=== PATIENT | male | born 1930 | race Caucasian/White ===

== ENCOUNTER 2017-06-19 05:02 | Day surgery (SDC) | payer OTHER, MEDICAID ==
[~2017-06-19] VITALS: Ht 175.3 cm; Wt 86.2 kg
[2017-06-19] MEDS ORDERED: CEFAZOLIN 1 GM IVPB PREMIX 50 ML IV ONE (07:00)
[2017-06-19] MEDS ORDERED: NEOSTIGMINE METHYLSULFATE 1 MG/ML, 10 ML VIAL IVP ONE (07:06)
[2017-06-19] MEDS ORDERED: KETOROLAC TROMETHAMINE 30 MG VIAL IVP ONE (07:06)
[2017-06-19] MEDS ORDERED: MIDAZOLAM HCL 5 MG/5 ML VIAL IVP ONE (07:06)
[2017-06-19] MEDS ORDERED: PROPOFOL 200MG/ 20ML VIAL (DIPRIVAN) IV ONE (07:06)
[2017-06-19] MEDS ORDERED: BUPIVACAINE /EPINEPHRINE/PF 0.25% 30 ML VIAL INJ ONE (07:06)
[2017-06-19] MEDS ORDERED: ONDANSETRON HCL 4 MG/2 ML VIAL IVP ONE (07:06)
[2017-06-19] MEDS ORDERED: SEVOFLURANE 15 MIN GAS INH ONE (07:06)
[2017-06-19] MEDS ORDERED: LR 1,000 ML IV.SOLN IV ONE (07:06)
[2017-06-19] MEDS ORDERED: fentaNYL CITRATE/PF 100 MCG/2 ML AMP IVP ONE (07:06)
[2017-06-19] MEDS ORDERED: NS IRRIG SOLN 1000 ML IR ONE (07:06)
[2017-06-19] MEDS ORDERED: GLYCOPYRROLATE 0.2 MG/ML VIAL IJ ONE (07:06)
[2017-06-19] MEDS ORDERED: ROCURONIUM BROMIDE 10 MG/ML (ZEMURON) IV ONE (07:06)
[2017-06-19] MEDS ORDERED: NS 1000 ML BAG IV ONE (07:06)
[2017-06-19] MEDS ORDERED: CEFAZOLIN SOD 1 GM/ ISO 50 ML PREMIX IV ONE (07:15)
[2017-06-19] MEDS ORDERED: IOHEXOL 50 ML IV ONE (07:29)
[2017-06-19] MEDS ORDERED: LR 1,000 ML IV SCH (07:51)
[2017-06-19] MEDS ORDERED: MEPERIDINE HCL/PF 25 MG/ML DISP.SYRIN IVP PRN ×2 (08:00)
[2017-06-19] MEDS ORDERED: ONDANSETRON HCL 4 MG/2 ML VIAL IVP PRN (08:00)
[2017-06-19] MEDS ORDERED: HYDROmorphone 1 MG INJ. 1 MG/ML AMPUL IVP PRN ×2 (08:00→09:00)
[2017-06-19] MEDS ORDERED: HYDROmorphone 2 MG/ML VIAL IVP PRN ×2 (08:00)
[2017-06-19] MEDS ORDERED: D5/0.45 NS 1,000 ML IV SCH (08:51)
[2017-06-19] MEDS ORDERED: HYDROcodone/ACETAMIN 5-325 MG TAB (NORCO/ VICODIN) PO PRN ×2 (09:00)
[2017-06-19 10:18] VITALS: BP_SYST 136
[2017-06-20] MEDS ORDERED: METF-509 PO (18:42)
[2017-06-20] MEDS ORDERED: ISOS30TA6 PO (18:42)
[2017-06-20] MEDS ORDERED: MELO15TA13 PO (18:42)
[2017-06-20] MEDS ORDERED: PANT20TA2 PO (18:44)
[2017-06-20] MEDS ORDERED: DONE5TAB3 PO (18:44)
[2017-06-20] MEDS ORDERED: TAMS-11 PO (18:44)
[2017-06-20] MEDS ORDERED: GLIP2.5T3 PO (18:44)
[2017-06-20] MEDS ORDERED: LOSA25TA3 PO (18:44)
== END 2017-06-19 12:30 | disposition home or self-care (01) ==
LOC: SMU 05:02 → SDS 05:02
PROVIDERS: ATTEND Colon & Rectal Surgery
DX: K80.10 Calculus of gallbladder with chronic cholecystitis without obstruction (principal); I25.10 Atherosclerotic heart disease of native coronary artery without angina pectoris; E11.9 Type 2 diabetes mellitus without complications; E78.00 Pure hypercholesterolemia, unspecified; I10 Essential (primary) hypertension; E03.9 Hypothyroidism, unspecified; C43.9 Malignant melanoma of skin, unspecified; K21.9 Gastro-esophageal reflux disease without esophagitis; Z87.891 Personal history of nicotine dependence; Z95.1 Presence of aortocoronary bypass graft; Z79.899 Other long term (current) drug therapy
CPT/HCPCS: 47563; 76000; 88304; C1727; C1758; J0690; J1885; J2250; J2405; J2704; J2710; J3010; J3490 ×2; J7030; J7120; Q9967

== ENCOUNTER 2017-06-19 18:08 | Emergency (ER) | payer OTHER, MEDICAID ==
[~2017-06-19] VITALS: Ht 175.3 cm; Wt 83.9 kg
[2017-06-19 18:11] VITALS: BP_SYST 132
[2017-06-19 18:45] VITALS: BP_SYST 132
[2017-06-20] MEDS ORDERED: MELO15TA13 PO (18:42)
[2017-06-20] MEDS ORDERED: ISOS30TA6 PO (18:42)
[2017-06-20] MEDS ORDERED: METF-509 PO (18:42)
[2017-06-20] MEDS ORDERED: PANT20TA2 PO (18:44)
[2017-06-20] MEDS ORDERED: TAMS-11 PO (18:44)
[2017-06-20] MEDS ORDERED: GLIP2.5T3 PO (18:44)
[2017-06-20] MEDS ORDERED: LOSA25TA3 PO (18:44)
[2017-06-20] MEDS ORDERED: DONE5TAB3 PO (18:44)
== END 2017-06-19 18:45 | disposition home or self-care (01) ==
LOC: SED 18:08
DX: K91.841 Postprocedural hemorrhage of a digestive system organ or structure following other procedure (principal); E11.9 Type 2 diabetes mellitus without complications; I10 Essential (primary) hypertension; Z90.49 Acquired absence of other specified parts of digestive tract
CPT/HCPCS: 99283

== ENCOUNTER 2017-06-20 14:53 | Inpatient (IN) | payer OTHER, MEDICAID ==
[~2017-06-20] VITALS: Ht 170.2 cm; Wt 85.7 kg
[2017-06-20 15:00] VITALS: BP_SYST 113
[2017-06-20] MEDS ORDERED: NACL 0.9% 1,000 ML IV ONE (15:18)
[2017-06-20 15:54] LABS: BASOPHILS # (AUTO) 0.1 K/uL (0.0-0.2); BASOPHILS % (AUTO) 0.9 % (0.0-2.0); EOSINOPHILS % (AUTO) 0.1 % (0.0-4.0); HEMATOCRIT 32.1 % (36-54); HEMOGLOBIN 10.7 g/dL (14.0-18.0); LYMPHOCYTES # (AUTO) 2.3 K/uL (1.0-5.5); LYMPHOCYTES % (AUTO) 17.6 % (20.5-51.5); MEAN CORPUSCULAR HEMOGLOBIN 31 pg (27-31); MEAN CORPUSCULAR HGB CONC 33 % (32-36); MEAN CORPUSCULAR VOLUME 93 fL (79.0-98.0); MONOCYTES # (AUTO) 1.2 K/uL (0.0-1.0); MONOCYTES % (AUTO) 9.6 % (1.7-9.3); NEUTROPHILS # (AUTO) 9.4 K/uL (1.8-7.7); NEUTROPHILS % (AUTO) 71.8 % (40.0-70.0); PLATELET COUNT (AUTO) 154 K/uL (130-430); RED BLOOD CELL COUNT(AUTO) 3.45 MIL/uL (4.2-6.2); RED CELL DISTRIBUTION WIDTH 12.9 % (9.0-15.0)
[2017-06-20 16:05] LABS: ANION GAP 7 (5-15); CALCIUM 7.6 mg/dL (8.4-11.0); CHLORIDE 108 mmol/L (98-107); CREATININE 1.79 mg/dL (0.55-1.30); GLUCOSE 99 mg/dL (70-99); POTASSIUM 4.2 mmol/L (3.5-5.1); SODIUM SERUM 141 mmol/L (136-145); UREA NITROGEN, BLOOD 30 mg/dL (8-21)
[2017-06-20 16:09] LABS: ALANINE AMINOTRANSFERASE 40 U/L (12-78); ALBUMIN 3.1 g/dL (3.4-4.8); ASPARTATE AMINOTRANSFERASE 28 U/L (10-37); LIPASE 56 U/L (73-393)
[2017-06-20] MEDS ORDERED: ISOS30TA6 PO (18:42)
[2017-06-20] MEDS ORDERED: METF-509 PO (18:42)
[2017-06-20] MEDS ORDERED: MELO15TA13 PO (18:42)
[2017-06-20] MEDS ORDERED: GLIP2.5T3 PO (18:44)
[2017-06-20] MEDS ORDERED: DONE5TAB3 PO (18:44)
[2017-06-20] MEDS ORDERED: PANT20TA2 PO (18:44)
[2017-06-20] MEDS ORDERED: TAMS-11 PO (18:44)
[2017-06-20] MEDS ORDERED: LOSA25TA3 PO (18:44)
[2017-06-20] MEDS ORDERED: ACETAMINOPHEN 325 MG TABLET PO PRN (20:30)
[2017-06-20] MEDS ORDERED: INSULIN REGULAR, HUMAN 100 UNITS/ML, 10 ML VIAL (novoLIN R) SUBCUT PRN (20:30)
[2017-06-20] MEDS ORDERED: LEVOFLOXACIN 500 MG/D5W 100 ML IV ONE (20:30)
[2017-06-20] MEDS ORDERED: DEXTROSE 50% JECT 50 ML DISP.SYRIN IVP PRN (20:30)
[2017-06-20 20:55] LABS: BASOPHILS # (AUTO) 0.4 K/uL (0.0-0.2); BASOPHILS % (AUTO) 3.4 % (0.0-2.0); EOSINOPHILS % (AUTO) 0.3 % (0.0-4.0); HEMATOCRIT 31.4 % (36-54); HEMOGLOBIN 10.4 g/dL (14.0-18.0); LYMPHOCYTES # (AUTO) 2.7 K/uL (1.0-5.5); LYMPHOCYTES % (AUTO) 20.4 % (20.5-51.5); MEAN CORPUSCULAR HEMOGLOBIN 31 pg (27-31); MEAN CORPUSCULAR HGB CONC 33 % (32-36); MEAN CORPUSCULAR VOLUME 93 fL (79.0-98.0); MONOCYTES # (AUTO) 1.1 K/uL (0.0-1.0); MONOCYTES % (AUTO) 8.1 % (1.7-9.3); NEUTROPHILS # (AUTO) 8.8 K/uL (1.8-7.7); NEUTROPHILS % (AUTO) 67.8 % (40.0-70.0); PLATELET COUNT (AUTO) 134 K/uL (130-430); RED BLOOD CELL COUNT(AUTO) 3.37 MIL/uL (4.2-6.2); RED CELL DISTRIBUTION WIDTH 13.2 % (9.0-15.0)
[2017-06-20] MEDS ORDERED: LEVOFLOXACIN 250 MG/D5W 50 ML IV ONE (21:04)
[2017-06-20 22:14] LABS: COLOR,URINE YELLOW (YELLOW)
[2017-06-20 22:15] LABS: BILIRUBIN,URINE NEGATIVE (NEGATIVE); BLOOD, URINE NEGATIVE (NEGATIVE); CLARITY/URINE CLEAR (CLEAR); GLUCOSE,URINE NEGATIVE (NEGATIVE); KETONES,URINE TRACE (NEGATIVE); LEUKOCYTE ESTERASE ,URINE NEGATIVE (NEGATIVE); NITRITE, URINE NEGATIVE (NEGATIVE); PH,URINE 5.5 (5.0-8.0); PROTEIN URINE NEGATIVE (NEGATIVE); UROBILINOGEN,URINE 0.2 (0.2-1.0)
[2017-06-20 22:20] LABS: BACTERIA,URINE FEW /HPF (None Seen); FINE GRANULAR CASTS,URINE 0-10 /LPF (None Seen); HYALINE CASTS, URINE 0-10 /LPF (None Seen); RBC,URINE NONE SEEN /HPF (0-3); WBC,URINE 0-3 /HPF (0-3)
[2017-06-20 22:21] LABS: MUCUS,URINE 2+ /LPF (None Seen)
[2017-06-20] MEDS: NACL 0.9% 1,000 ML IV SCH (22:46)
[2017-06-20] MEDS: ZOLPIDEM TARTRATE 5 MG TABLET PO PRN (22:50)
[2017-06-20 23:49] VITALS: BP_SYST 140
[2017-06-21 04:04] VITALS: BP_SYST 145
[2017-06-21 06:36] LABS: BASOPHILS # (AUTO) 0.1 K/uL (0.0-0.2); BASOPHILS % (AUTO) 0.5 % (0.0-2.0); EOSINOPHILS # (AUTO) 0.1 K/uL (0.0-0.4); HEMATOCRIT 30.4 % (36-54); HEMOGLOBIN 10.1 g/dL (14.0-18.0); LYMPHOCYTES # (AUTO) 2.2 K/uL (1.0-5.5); LYMPHOCYTES % (AUTO) 21.8 % (20.5-51.5); MEAN CORPUSCULAR HEMOGLOBIN 32 pg (27-31); MEAN CORPUSCULAR HGB CONC 33 % (32-36); MEAN CORPUSCULAR VOLUME 95 fL (79.0-98.0); MONOCYTES # (AUTO) 0.6 K/uL (0.0-1.0); MONOCYTES % (AUTO) 6.1 % (1.7-9.3); NEUTROPHILS # (AUTO) 7.3 K/uL (1.8-7.7); NEUTROPHILS % (AUTO) 70.6 % (40.0-70.0); PLATELET COUNT (AUTO) 153 K/uL (130-430); WHITE BLOOD COUNT (AUTO) 10.3 K/uL (4.8-10.8)
[2017-06-21 07:01] LABS: ALANINE AMINOTRANSFERASE 37 U/L (12-78); ALBUMIN 2.9 g/dL (3.4-4.8); ANION GAP 6 (5-15); ASPARTATE AMINOTRANSFERASE 33 U/L (10-37); CALCIUM 7.5 mg/dL (8.4-11.0); CHLORIDE 111 mmol/L (98-107); CREATININE 0.97 mg/dL (0.55-1.30); GLUCOSE 106 mg/dL (70-99); POTASSIUM 4.1 mmol/L (3.5-5.1); SODIUM SERUM 142 mmol/L (136-145); UREA NITROGEN, BLOOD 21 mg/dL (8-21)
[2017-06-21 08:37] VITALS: BP_SYST 146
[2017-06-21] MEDS: PANTOPRAZOLE SODIUM 40 MG TAB PO SCH (08:44)
[2017-06-21] MEDS: TAMSULOSIN HCL 0.4 MG CAP PO SCH (08:44)
[2017-06-21] MEDS: glipiZIDE XL 2.5 MG/TAB (GLUCOTROL XL) PO SCH (08:44)
[2017-06-21] MEDS ORDERED: DONEPEZIL HCL 5 MG TABLET (ARICEPT) PO SCH (09:00)
[2017-06-21] MEDS: HYDROmorphone 1 MG INJ. 1 MG/ML AMPUL IVP PRN ×2 (11:53→21:09)
[2017-06-21 12:05] VITALS: BP_SYST 168
[2017-06-21] MEDS: NACL 0.9% 1,000 ML IV SCH (15:46)
[2017-06-21 16:59] VITALS: BP_SYST 115
[2017-06-21 20:00] VITALS: BP_SYST 166
[2017-06-21] MEDS: LEVOFLOXACIN 250 MG/D5W 50 ML IV SCH (21:02)
[2017-06-21] MEDS: ZOLPIDEM TARTRATE 5 MG TABLET PO PRN (21:09)
[2017-06-22] VITALS (7 sets, daily range): BP systolic 120–169
[2017-06-22] MEDS: NACL 0.9% 1,000 ML IV SCH ×2 (06:28→21:05)
[2017-06-22] MEDS: cloNIDine HCL 0.1 MG TABLET PO PRN ×2 (06:31→20:52)
[2017-06-22] MEDS: glipiZIDE XL 2.5 MG/TAB (GLUCOTROL XL) PO SCH (08:26)
[2017-06-22] MEDS: TAMSULOSIN HCL 0.4 MG CAP PO SCH (08:26)
[2017-06-22] MEDS: PANTOPRAZOLE SODIUM 40 MG TAB PO SCH (08:26)
[2017-06-22] MEDS: LEVOFLOXACIN 250 MG/D5W 50 ML IV SCH (20:53)
[2017-06-22] MEDS ORDERED: DONEPEZIL HCL 5 MG TABLET (ARICEPT) PO SCH (21:00)
[2017-06-22] MEDS: ZOLPIDEM TARTRATE 5 MG TABLET PO PRN (21:05)
[2017-06-23 00:39] VITALS: BP_SYST 157
[2017-06-23 03:06] VITALS: BP_SYST 142
[2017-06-23 08:01] VITALS: BP_SYST 155
[2017-06-23] MEDS: PANTOPRAZOLE SODIUM 40 MG TAB PO SCH (08:28)
[2017-06-23] MEDS: TAMSULOSIN HCL 0.4 MG CAP PO SCH (08:29)
[2017-06-23] MEDS: glipiZIDE XL 2.5 MG/TAB (GLUCOTROL XL) PO SCH (08:29)
[2017-06-23] MEDS: NACL 0.9% 1,000 ML IV SCH (08:30)
[2017-06-23 12:00] VITALS: BP_SYST 152
[2017-06-23 12:01] VITALS: BP_SYST 152
== END 2017-06-23 14:40 | disposition home health service (06) | DRG 312 ==
LOC: SED 14:53 → STU 17:25 → SMU 06-22 11:00
PROVIDERS: ADMIT Internal Medicine Hospice and Palliative Medicine; ATTEND Internal Medicine Hospice and Palliative Medicine
DX: R55 Syncope and collapse (principal); N17.0 Acute kidney failure with tubular necrosis; I10 Essential (primary) hypertension; E11.9 Type 2 diabetes mellitus without complications; F03.90 Unspecified dementia, unspecified severity, without behavioral disturbance, psychotic disturbance, mood disturbance, and anxiety; D72.829 Elevated white blood cell count, unspecified; Z85.820 Personal history of malignant melanoma of skin; Z90.49 Acquired absence of other specified parts of digestive tract; Z87.891 Personal history of nicotine dependence
CPT/HCPCS: 36415; 71010; 80053; 81000-TC; 82962; 83690-TC; 85025; 86886; 86900; 86901; 87040-TC; 87081; 87086; 93005; 93306; 93880; 96360; 97110-GP; 97116-GP; 97530-GP; 99285; J1170; J1956; J7030